=== PATIENT | female | born 1940 | race Caucasian/White ===

== ENCOUNTER 2016-12-12 16:39 | Emergency (ER) | payer MEDICARE, OTHER ==
[2016-12-12 16:46] VITALS: BP 177/92
--- NOTE | 2016-12-12 17:29 | RAD ---
INDICATION: Bilateral splinting, chest pain and sputum production. COMPARISON: Comparison is made with a prior chest x-ray study from February 08, 2014. TECHNIQUE: Dual-energy PA and lateral views of the chest were obtained. FINDINGS: The heart is within normal limits in size. Mediastinal and hilar contours appear within normal limits. The lungs are clear. No pleural effusion is present. IMPRESSION: NO EVIDENCE FOR ACTIVE CARDIOPULMONARY DISEASE.
--- NOTE | 2016-12-12 18:36 | UC ---
Stephany Blankenship Thomas, scribed for Jaya Najera MD on 12/12/16 at 1730 . Cardiac HPI - HPI Summary HPI Summary: The patient is a 76 y/o F [place] [facility]/o bilateral lower rib pain that began three weeks ago. The pain is described as a splinting pain. She rates the pain 4/10. She additionally c/o sputum production (yellow, green, and clear production) and postnasal drip. She denies a SOB, although she does note SOB when she is producing sputum. Today, she called her PCP to schedule an appointment, and she was referred [place] [facility]. The patient fell on 10/19/16, and she speculates if this injury has something to do with her bilateral rib pain. PMHx : DM, HTN, GERD, and dyslipidemia. PSHx: tubal ligation. SHx: former smoker, no alcohol use, and no illicit drug use. FHx: DM and CAD. - History of Current Complaint Chief Complaint: UCRespiratory Stated Complaint: COUGHING AND RIB PAIN Time Seen by Provider: 12/12/16 16:48 Hx Obtained From: Patient Onset/Duration: Lasting Weeks - 3, Still Present Timing: Constant Chest Pain Location: Discrete at: - bilateral lower rib Aggravating: Nothing Alleviating: Nothing Associated Signs & Symptoms: Positive: Cough - sputum production. Negative: SOB - no chronic SOB, although, Fever - Allergy/Home Medications Allergies/Adverse Reactions: Allergies Allergy/AdvReac Type Severity Reaction Status Date / Time No Known Allergies Allergy Verified 12/12/16 16:46 PMH/Surg Hx/FS Hx/Imm Hx Previously Healthy: No Endocrine History: Diabetes, Dyslipidemia Cardiovascular History: Hypertension GI/ History: Gastroesophageal Reflux - Surgical History Surgical History: Yes Surgery Procedure, Year, and Place: TUBAL LIGATION - Family History Known Family History: Positive: Cardiac Disease, Diabetes - Social History Alcohol Use: Rare Substance Use Type: None Smoking Status (MU): Former Smoker Type: Cigarettes Have You Smoked in the Last Year: No Household Exposure Type: Cigarettes - Immunization History Most Recent Influenza Vaccination: refuses Most Recent Tetanus Shot: pt doesn't remember Most Recent Pneumonia Vaccination: up to date Review of Systems Constitutional: Negative Skin: Negative Eyes: Negative ENT: Other - POS: postnasal drip Respiratory: Other - POS: sputum production (yellow, green, clear); NEG: SOB ( no chronic SOB, although some when she produces sputum) Cardiovascular: Negative Gastrointestinal: Negative Genitourinary: Negative Motor: Negative Neurovascular: Negative Musculoskeletal: Other: - POS: bilateral lower rib pain (onset three weeks ago) Neurological: Negative Psychological: Negative All Other Systems Reviewed And Are Negative: Yes Physical Exam Triage Information Reviewed: Yes Vital Signs: Initial Vital Signs Temp 98.9 F 12/12/16 16:43 Pulse 80 12/12/16 16:43 Resp 12 12/12/16 16:43 BP 177/92 12/12/16 16:43 Pulse Ox 98 12/12/16 16:43 - Additional Comments General: well-appearing, no pain distress Skin: warm, color reflects adequate perfusion, dry, no rash Head: normal Eyes: EOMI, DARRIAN ENT: normal Neck: supple, nontender Respiratory: CTA, breath sounds present Cardiovascular: RRR Abdomen: soft, nontender Bowel: present Musculoskeletal: There is tenderness to palpation at the T8 on the right side. normal, strength/ROM intact, no pedal edema, calves are nontender Neurological: normal, sensory/motor intact, A&O x3 Psychological: affect/mood appropriate Diagnostics - Radiology CXR Xray Interpretation: No Acute Changes - No evidence for active cardiopulmonary disease. Radiology Interpretation Completed By: Radiologist Re-Evaluation - Re-Evaluation First Eval Re-Evaluation Time: 17:40 Change: Unchanged - On re-evaluation at 17:40, I discussed the XR results. I also disused the plan to treat with Augmentin for sinusitis. We also discussed going to the ED for further immediate evaluation of pain, but she declined. I told her of the possibility of a pulmonary embolism or a disc problem in her thoracic spine. She said that she would like to start antibiotics, go to her doctor, and only present to the ED if this worsens. - Assessment/Plan Course Of Treatment: On re-evaluation at 17:40, I discussed the XR results. I also disused the plan to treat with Augmentin for sinusitis. We also discussed going to the ED for further immediate evaluation of pain, but she declined. I told her of the possibility of a pulmonary embolism or a disc problem in her thoracic spine. She said that she would like to start antibiotics, go to her doctor, and only present to the ED if this worsens. WILL TYREAT FOR SINUSITIS. DISCUSSED GOING TO THE EMERGENCY DEPARTMENT NOW FOR EVALUATION OF HER PAIN AND CHEST CONGESTION. SHE DECLINED; SHE AGREED TO BE TREATED FOR SUNUSITIS AND F /U WITH PMD, SHE WILL GO TO THE ED IF SHE WORSENS OR HAS FURTHER CONCERNS. - Clinical Impression Provider Diagnoses: Chest pain, sinusitis, Uncontrolled blood pressure with a diagnosis of hypertension Discharge - Discharge Plan Condition: Stable Disposition: HOME Prescriptions: Amoxicillin/Clavulanate TAB* [Augmentin TAB 875*] 875 mg PO BID #20 tab Patient Education Materials: Chest Pain (ED), Sinusitis (ED), Hypertension (ED) Referrals: Ivan Jarvis NP [Primary Care Provider] - Additional Instructions: FOLLOW UP WITH YOUR DOCTOR. CALL TODAY FOR FOLLOW UP. GO TO THE EMERGENCY DEPARTMENT FOR ANY WORSENING OF YOUR CONDITION; CHEST PAIN, SHORTNESS OF BREATH, YOU FEEL ILL OR QUESTIONS OR CONCERNS. The documentation as recorded by the Stephany sunshine Thomas accurately reflects the service I personally performed and the decisions made by me, Jaya Najera MD.
== END 2016-12-12 17:54 | disposition home or self-care (01) ==
LOC: UCEAST 16:39
DX: R07.89 Other chest pain (principal); J32.9 Chronic sinusitis, unspecified; R05 Cough; I10 Essential (primary) hypertension; E11.9 Type 2 diabetes mellitus without complications; E78.5 Hyperlipidemia, unspecified; K21.9 Gastro-esophageal reflux disease without esophagitis; Z87.891 Personal history of nicotine dependence
CPT/HCPCS: 71020; 99212; G0463